=== PATIENT | female | born 1950 | race Caucasian/White ===

== ENCOUNTER 2016-08-25 15:15 | Emergency (ER) | payer MEDICARE, OTHER ==
[~2016-08-25] VITALS: Wt 113.6 kg
[~2016-08-25 15:15] MED LIST: ARIP30TA10 PO; BENA20TA48 PO; DIVA500T34 PO; METO-429 PO; RIS1 PO
[2016-08-25] MEDS ORDERED: CEPH500C PO (17:04)
[2016-08-25] MEDS ORDERED: SULF1TAB31 PO (17:05)
--- NOTE | 2016-08-25 17:10 | ERD ---
ER Documentation Chief Complaint Date/Time DATE: 08/25/16 TIME: 17:06 Chief Complaint swollen toes HPI This is a 65-year-old female presents to the ER with redness and swelling of her pinky toes on both feet. Patient denies any fevers or chills. Patient denies any pain to the area. Patient does have a past medical history of diabetes and was told to come to the ER. Patient denies any trauma. She denies any numbness or tingling in her feet. She denies any calf pain. Patient denies any chest pain or shortness of breath. ROS 12 point review of systems was done, all negative except per HPI. Medications Home Meds Active Scripts Sulfamethoxazole/Trimethoprim* (Bactrim Ds* Tablet) 1 Each Tablet, 1 TAB PO BID , #14 TAB Prov:SEAN AGUILLON 08/25/16 Cephalexin* (Cephalexin*) 500 Mg Capsule, 500 MG PO BID for 7 Days, #28 CAP Prov:SEAN AGUILLON 08/25/16 Reported Medications Metoprolol Tartrate (LOPRESSOR) 50 Mg Tab, PO DAILY 06/19/12 Benazepril Hcl* (Benazepril Hcl*) 20 Mg Tablet, PO DAILY 06/19/12 Divalproex Sodium (Depakote Er) 500 Mg Tab.sr.24h, PO BID 06/19/12 Risperidone* (Risperdal*) 1 Mg Tablet, 0.5 MG PO BID 06/19/12 Aripiprazole* (Abilify*) 30 Mg Tablet, PO DAILY 06/19/12 Allergies Allergies: Coded Allergies: No Known Allergy (Verified , 06/19/12) PMhx/Soc History of Surgery: Yes (TONSILS, BREAST AUG, GALL BLADDER, APPENDIX,) Anesthesia Reaction: No Hx Neurological Disorder: No Hx Respiratory Disorders: Yes (COPD) Hx Cardiac Disorders: Yes (HTN) Hx Psychiatric Problems: Yes (BIPOLAR) Hx Miscellaneous Medical Probl: Yes (ARTHRITIS) Hx Alcohol Use: No (FORMER) Hx Substance Use: No Hx Tobacco Use: No Smoking Status: Former smoker Physical Exam Vitals Vital Signs Date Time Temp Pulse Resp B/P Pulse Ox O2 Delivery O2 Flow Rate FiO2 08/25/16 15:18 98.0 64 20 165/77 95 Physical Exam GENERAL: Well-developed well-nourished no acute distress. CHEST: Clear to auscultation bilaterally. There are no rales, wheezes or rhonchi. HEART: Regular rate and rhythm. No murmurs, clicks, rubs or gallops. EXTREMITIES: Patient has erythematous fifth digits to bilateral feet, they are warm to the touch. There is no discharge or edema. No areas of ulcerations. Normal capillary refills. +2 dorsalis pedis and posterior tibialis pulses. NEURO: Alert and oriented. Cranial nerves II through XII are intact. Motor strength in all 4 extremities with 5/5 strength. Sensation grossly intact. Normal speech and gait. SKIN: There is no apparent rash or petechia. The skin is warm and dry. Procedures/MDM This is a 65-year-old female presents to the ER with toe redness. On physical examination toes are slightly warm to palpation. He has patient is diabetic she will be covered for possible cellulitis. She will be sent home with Bactrim and Keflex. At this time patient is afebrile and well-appearing I doubt abscess, deep space infection, osteomyelitis, rhabdo, myositis. Patient has full range of motion of both feet and she is neurovascularly intact. This patient was examined by myself and by Dr. Neville. Dr. Neville agrees with my medical decision making. Patient needs to follow-up with her primary care doctor within 1-2 days return to ER sooner if symptoms worsen. My medical decision making shared with the patient she understands and agrees with plan. Departure Diagnosis: Primary Impression: Cellulitis Condition: Stable Patient Instructions: Cellulitis Additional Instructions: Call your primary care doctor TOMORROW for an appointment during the next 1-2 days.See the doctor sooner or return here if your condition worsens before your appointment time. SEAN AGUILLON Aug 25, 2016 17:10
== END 2016-08-25 17:14 | disposition home or self-care (01) ==
LOC: FTE 15:15
DX: L03.032 Cellulitis of left toe (principal); L03.031 Cellulitis of right toe; I10 Essential (primary) hypertension; J44.9 Chronic obstructive pulmonary disease, unspecified; Z87.891 Personal history of nicotine dependence
CPT/HCPCS: 99284

== ENCOUNTER 2017-08-17 21:39 | Emergency (ER) | END 2017-08-18 05:00 | disposition home or self-care (01) ==